=== PATIENT | male | born 1965 | race Caucasian/White ===

== ENCOUNTER 2018-06-14 08:40 | Emergency (ER) | payer OTHER ==
[~2018-06-14] VITALS: Ht 182.9 cm; Wt 95.3 kg
--- NOTE | 2018-06-14 08:55 | PHYS DOC ---
Past Medical History Past Medical History: Diabetes-Type II Adult General Chief Complaint Chief Complaint: MULTIPLE TRAUMA/FALL HPI HPI Patient is a 53 year old male walked into ER for evaluation of facial pain, sternum pain, wrists pain and left femur pain . Patient said he was on a ladder about 16 feet above ground. Patient said the ladder slipped and he rode the ladder down, landed on the ladder, on his chest. Patient complained of left thigh pain, bilateral wrists pain. Patient also complains of sternum pain and facial pain. Patient denied any abdominal pain, no knee pain, no hip pain, no feet pain. Patient denied head injury, no loss of consciousness, no headache, no neck pain. Review of Systems Review of Systems Constitutional: Denies fever or chills [] Eyes: Denies change in visual acuity, redness, or eye pain [] HENT: Denies nasal congestion or sore throat , positive for facial pain. Respiratory: Denies cough or shortness of breath [] Cardiovascular: No additional information not addressed in HPI [] GI: Denies abdominal pain, nausea, vomiting, bloody stools or diarrhea [] : Denies dysuria or hematuria [] Musculoskeletal: bilateral wrists pain, left thigh pain Integument: Denies rash or skin lesions [] Neurologic: Denies headache, focal weakness or sensory changes [] Endocrine: Denies polyuria or polydipsia [] All other systems were reviewed and found to be within normal limits, except as documented in this note. Allergies Allergies Allergies Coded Allergies Type Severity Reaction Last Updated Verified No Known Drug Allergies 06/14/18 No Physical Exam Physical Exam Constitutional: Well developed, well nourished, no acute distress, non-toxic appearance. [] HENT: Normocephalic, atraumatic, bilateral external ears normal, oropharynx moist, no oral exudates, nose normal, facial skin contusion at the area between upper teja and nose. No nasal bridge contusion, no septal hematom. Eyes: PERRLA, EOMI, conjunctiva normal, no discharge. [] Neck: Normal range of motion, no tenderness, supple, no stridor. [] Cardiovascular:Heart rate regular rhythm, no murmur [] Lungs & Thorax: Bilateral breath sounds clear to auscultation, sternum tender to palpation, skin contusion on anterior chest, no crepitus. Abdomen: Bowel sounds normal, soft, no tenderness, no masses, no pulsatile masses. [] Skin: Warm, dry, no erythema, no rash. [] Back: No tenderness, no CVA tenderness. [] Extremities: left thigh tender to palpation, no pelvic or knees tenderness to palpation. Bilateral wrists tender to palpation, there is no swelling, Neurologic: Alert and oriented X 3, normal motor function, normal sensory function, no focal deficits noted. [] Psychologic: Affect normal, judgement normal, mood normal. [] Current Patient Data Vital Signs Vital Signs Date Time Temp Pulse Resp B/P (MAP) Pulse Ox O2 Delivery O2 Flow Rate FiO2 06/14/18 10:45 80 20 172/113 (132) 98 Room Air 06/14/18 08:45 98.4 98.4 EKG EKG [] Radiology/Procedures Radiology/Procedures [[facility] [address] [place] [address] IMAGING REPORT Signed PATIENT: DIONNE ALVARENGA ACCOUNT: [id number] : 1965 LOCATION: ER AGE: 53 SEX: M EXAM STATUS: PRE ER ORD. PHYSICIAN: TIARRA FINCH DO REASON: fell off a ladder, facial injury, head injury PROCEDURE: CT HEAD AND MAXILLOFACIAL WO Examination: CT head and CT face without contrast HISTORY: History of head and neck pain fall from a ladder, facial laceration COMPARISON: None available Exposure: One or more of the following individualized dose reduction techniques were utilized for this examination: 1. Automated exposure control 2. Adjustment of the mA and/or kV according to patient size 3. Use of iterative reconstruction technique CT HEAD TECHNIQUE: 5 mm contiguous axial images were obtained from the skull base to the vertex in both bone and soft tissue algorithm. FINDINGS: Mild bilateral periventricular white matter hypodensities likely chronic small vessel ischemic disease. No evidence of acute intracranial hemorrhage. No extra-axial fluid collections. No mass effect or midline shift. Ventricular size is appropriate. Basal cisterns are patent. No fractures identified.Calderon-white differentiation is preserved.Globes and orbits are within normal limits. Mild mucosal thickening identified in the bilateral ethmoidal sinuses and maxillary sinuses. Small mucous retention cysts or polyps identified in the left maxillary sinus. IMPRESSION: No acute intracranial findings. EXAM: CT FACIAL BONES WITHOUT CONTRAST TECHNIQUE: Noncontrast images of the facial bones are performed. Coronal and sagittal reformatted images are also presented for interpretation. FINDINGS: No fracture, dislocation or other acute bony abnormality is identified. There is no soft tissue abnormality or radiopaque foreign body. The globes and orbits are intact in CT appearance. There is no retrobulbar hematoma. IMPRESSION: No acute fracture of the facial bones. Electronically signed by: Lee Mcneal MD (06/14/2018 9:43 AM) [id number] DICTATED and SIGNED BY: LEE MCNEAL MD DATE: 06/14/18 0937 ] [facility] [address] [place] [address] IMAGING REPORT Signed PATIENT: DIONNE ALVARENGA ACCOUNT: [id number] : 1965 LOCATION: ER AGE: 53 SEX: M EXAM STATUS: PRE ER ORD. PHYSICIAN: TIARRA FINCH DO REASON: fell off ladder, landed on chest with ladder, chest pain, sternum pain PROCEDURE: CT CHEST WO CONTRAST CT CHEST WO CONTRAST Indication: MIDSTERNAL CHEST PAIN POST FALL FROM LADDER Exposure: One or more of the following individualized dose reduction techniques were utilized for this examination: 1. Automated exposure control 2. Adjustment of the mA and/or kV according to patient size 3. Use of iterative reconstruction technique. Comparison: None are available. Contrast: None FINDINGS: Vascular structures: Limited exam without contrast. No evidence of thoracic aortic aneurysm. Lymph nodes:No significant enlargement Thyroid gland:Visualized aspect is unremarkable. Heart: Mild coronary artery calcification. Esophagus: Unremarkable Pleural spaces: No significant effusion Lungs: Dense nodule in the superior segment of the right lower lobe, measures 12 mm in diameter. This demonstrates dense central calcification. Small noncalcified pulmonary nodule at the superior segment of the left lower lobe, abutting the fissure, measures 4 mm, series 3, image 27. Trachea and central airways: Patent Spine: Mild degenerative change. Bones: No evidence of acute sternal fracture. Upper abdomen: Slices obtained through the upper most abdomen are limited by the noncontrast technique. No obvious acute findings. Impression: 1. No acute findings. 2. Note that vascular exam is limited without intravenous contrast. 3. Large densely calcified nodule in the right lower lobe, likely a granuloma. There is a small 4 mm noncalcified pulmonary nodule in the left lower lobe. If patient is low risk, follow-up is not necessarily required as per Fleischner Society guidelines. If high risk, consider CT chest in 12 months. Electronically signed by: Emiliano Del Toro MD (06/14/2018 10:02 AM) [facility] DICTATED and SIGNED BY: EMILIANO DEL TORO MD DATE: 06/14/18 0953 [facility] [address] [place], [place] [id number] IMAGING REPORT Signed PATIENT: DIONNE ALVARENGA ACCOUNT: [id number] : 1965 LOCATION: ER AGE: 53 SEX: M EXAM STATUS: PRE ER ORD. PHYSICIAN: TIARRA FINCH DO REASON: fell off a ladder, facial injury, head injury PROCEDURE: CT CERVICAL SPINE WO CONTRAST CT CERVICAL SPINE INDICATION: HEAD AND NECK PAIN POST FALL FROM LADDER, FACIAL LACERATION TO LIP
NO PRIORS COMPARISON: None Available. Technique: 2.5 mm contiguous axial images were obtained from the skull base through the cervicothoracic junction in both bone and soft tissue algorithm. Additional sagittal and coronal reconstructions were also performed. Exposure: One or more of the following individualized dose reduction techniques were utilized for this examination: 1. Automated exposure control 2. Adjustment of the mA and/or kV according to patient size 3. Use of iterative reconstruction technique FINDINGS: Vertebral body height and alignment are maintained. Cervical lordosis is preserved. The lateral masses of C1 are aligned upon C2. No fractures identified. The bony canal is patent throughout. Mild intervertebral disc height loss identified throughout cervical spine. The paraspinous soft tissues are unremarkable. Visualized intracranial contents are unremarkable. Lung apices are clear. IMPRESSION: 1. No acute fracture of cervical spine. Correlate clinically. 2. Mild degenerative changes cervical spine. Electronically signed by: Lee Mcneal MD (06/14/2018 9:47 AM) [id number] DICTATED and SIGNED BY: LEE MCNEAL MD DATE: 06/14/1844 [facility] [address] [place] [address] IMAGING REPORT Signed PATIENT: DIONNE ALVARENGA ACCOUNT: [id number] : 1965 LOCATION: ER AGE: 53 SEX: M EXAM STATUS: PRE ER ORD. PHYSICIAN: TIARRA FINCH DO REASON: fell, left side femur pain PROCEDURE: LEFT FEMUR XRAY Left femur, 2 views, 06/14/2018: HISTORY: Fall, injuries No femoral fracture is identified. Arterial calcifications are noted. IMPRESSION: No acute left femoral abnormality is detected. Portable pelvis, single view, 06/14/2018: No fracture is identified. The soft tissues are unremarkable. IMPRESSION: No acute pelvic abnormality is detected. Bilateral wrists, 6 views, 06/14/2018: HISTORY: Fall, wrist pain No fracture or dislocation is identified. Arterial calcifications are present. There is mild subcutaneous edema. IMPRESSION: No acute bony abnormality is detected. Electronically signed by: Justin Padilla MD (06/14/2018 9:28 AM) [facility] DICTATED and SIGNED BY: JUSTIN PADILLA MD DATE: 06/14/1825 [id number] [place] [address] IMAGING REPORT Signed PATIENT: DIONNE ALVARENGA ACCOUNT: [id number] : 1965 LOCATION: ER AGE: 53 SEX: M EXAM STATUS: PRE ER ORD. PHYSICIAN: TIARRA FINCH DO REASON: fell off ladder, wrists pain PROCEDURE: WRIST BILAT 3V Left femur, 2 views, 06/14/2018: HISTORY: Fall, injuries No femoral fracture is identified. Arterial calcifications are noted. IMPRESSION: No acute left femoral abnormality is detected. Portable pelvis, single view, 06/14/2018: No fracture is identified. The soft tissues are unremarkable. IMPRESSION: No acute pelvic abnormality is detected. Bilateral wrists, 6 views, 06/14/2018: HISTORY: Fall, wrist pain No fracture or dislocation is identified. Arterial calcifications are present. There is mild subcutaneous edema. IMPRESSION: No acute bony abnormality is detected. Electronically signed by: Justin Padilla MD (06/14/2018 9:28 AM) [facility] DICTATED and SIGNED BY: JUSTIN PADILLA MD DATE: 06/14/18924 Course & Med Decision Making Course & Med Decision Making Pertinent Labs and Imaging studies reviewed. (See chart for details) [] Dragon Disclaimer Dragon Disclaimer This electronic medical record was generated, in whole or in part, using a voice recognition dictation system. Departure Departure Impression: Primary Impression: Contusion of face Additional Impressions: Contusion of wrist, left Contusion of wrist, right Thigh contusion Disposition: 01 HOME, SELF-CARE Condition: STABLE Patient Instructions: Facial or Scalp Contusion, Wyva-pu-Dcvv, Hand Contusion, [id number]-fn-[id number] Scripts Tramadol Hcl (TRAMADOL HCL) 50 Mg Tablet 50 MG PO Q6HRS PRN for PAIN for 5 Days, #20 TAB Prov: TIARRA FINCH DO 06/14/18 Problem Qualifiers TIARRA FINCH DO Jun 14, 2018 08:55
--- NOTE | 2018-06-14 09:32 | RAD ---
Left femur, 2 views, 06/14/2018: HISTORY: Fall, injuries No femoral fracture is identified. Arterial calcifications are noted. IMPRESSION: No acute left femoral abnormality is detected. Portable pelvis, single view, 06/14/2018: No fracture is identified. The soft tissues are unremarkable. IMPRESSION: No acute pelvic abnormality is detected. Bilateral wrists, 6 views, 06/14/2018: HISTORY: Fall, wrist pain No fracture or dislocation is identified. Arterial calcifications are present. There is mild subcutaneous edema. IMPRESSION: No acute bony abnormality is detected. Electronically signed by: Justin Dozier MD (06/14/2018 9:28 AM) [facility]
--- NOTE | 2018-06-14 09:47 | RAD ---
Examination: CT head and CT face without contrast HISTORY: History of head and neck pain fall from a ladder, facial laceration COMPARISON: None available Exposure: One or more of the following individualized dose reduction techniques were utilized for this examination: 1. Automated exposure control 2. Adjustment of the mA and/or kV according to patient size 3. Use of iterative reconstruction technique CT HEAD TECHNIQUE: 5 mm contiguous axial images were obtained from the skull base to the vertex in both bone and soft tissue algorithm. FINDINGS: Mild bilateral periventricular white matter hypodensities likely chronic small vessel ischemic disease. No evidence of acute intracranial hemorrhage. No extra-axial fluid collections. No mass effect or midline shift. Ventricular size is appropriate. Basal cisterns are patent. No fractures identified.Calderon-white differentiation is preserved.Globes and orbits are within normal limits. Mild mucosal thickening identified in the bilateral ethmoidal sinuses and maxillary sinuses. Small mucous retention cysts or polyps identified in the left maxillary sinus. IMPRESSION: No acute intracranial findings. EXAM: CT FACIAL BONES WITHOUT CONTRAST TECHNIQUE: Noncontrast images of the facial bones are performed. Coronal and sagittal reformatted images are also presented for interpretation. FINDINGS: No fracture, dislocation or other acute bony abnormality is identified. There is no soft tissue abnormality or radiopaque foreign body. The globes and orbits are intact in CT appearance. There is no retrobulbar hematoma. IMPRESSION: No acute fracture of the facial bones. Electronically signed by: Lee Mcneal MD (06/14/2018 9:43 AM) [id number]
--- NOTE | 2018-06-14 09:51 | RAD ---
CT CERVICAL SPINE INDICATION: HEAD AND NECK PAIN POST FALL FROM LADDER, FACIAL LACERATION TO LIP
NO PRIORS COMPARISON: None Available. Technique: 2.5 mm contiguous axial images were obtained from the skull base through the cervicothoracic junction in both bone and soft tissue algorithm. Additional sagittal and coronal reconstructions were also performed. Exposure: One or more of the following individualized dose reduction techniques were utilized for this examination: 1. Automated exposure control 2. Adjustment of the mA and/or kV according to patient size 3. Use of iterative reconstruction technique FINDINGS: Vertebral body height and alignment are maintained. Cervical lordosis is preserved. The lateral masses of C1 are aligned upon C2. No fractures identified. The bony canal is patent throughout. Mild intervertebral disc height loss identified throughout cervical spine. The paraspinous soft tissues are unremarkable. Visualized intracranial contents are unremarkable. Lung apices are clear. IMPRESSION: 1. No acute fracture of cervical spine. Correlate clinically. 2. Mild degenerative changes cervical spine. Electronically signed by: Lee Mcneal MD (06/14/2018 9:47 AM) [id number]
--- NOTE | 2018-06-14 10:06 | RAD ---
CT CHEST WO CONTRAST Indication: MIDSTERNAL CHEST PAIN POST FALL FROM LADDER Exposure: One or more of the following individualized dose reduction techniques were utilized for this examination: 1. Automated exposure control 2. Adjustment of the mA and/or kV according to patient size 3. Use of iterative reconstruction technique. Comparison: None are available. Contrast: None FINDINGS: Vascular structures: Limited exam without contrast. No evidence of thoracic aortic aneurysm. Lymph nodes:No significant enlargement Thyroid gland:Visualized aspect is unremarkable. Heart: Mild coronary artery calcification. Esophagus: Unremarkable Pleural spaces: No significant effusion Lungs: Dense nodule in the superior segment of the right lower lobe, measures 12 mm in diameter. This demonstrates dense central calcification. Small noncalcified pulmonary nodule at the superior segment of the left lower lobe, abutting the fissure, measures 4 mm, series 3, image 27. Trachea and central airways: Patent Spine: Mild degenerative change. Bones: No evidence of acute sternal fracture. Upper abdomen: Slices obtained through the upper most abdomen are limited by the noncontrast technique. No obvious acute findings. Impression: 1. No acute findings. 2. Note that vascular exam is limited without intravenous contrast. 3. Large densely calcified nodule in the right lower lobe, likely a granuloma. There is a small 4 mm noncalcified pulmonary nodule in the left lower lobe. If patient is low risk, follow-up is not necessarily required as per Fleischner Society guidelines. If high risk, consider CT chest in 12 months. Electronically signed by: Emiliano Del Toro MD (06/14/2018 10:02 AM) [id number]
[2018-06-14 10:45] VITALS: BP 172/113
[2018-06-14] MEDS ORDERED: TRAM50TA PO (11:06)
== END 2018-06-14 11:10 | disposition home or self-care (01) ==
LOC: ER 08:40
DX: S00.83XA Contusion of other part of head, initial encounter (principal); S60.212A Contusion of left wrist, initial encounter; S60.211A Contusion of right wrist, initial encounter; S70.12XA Contusion of left thigh, initial encounter; R07.2 Precordial pain; R51 Headache; E11.9 Type 2 diabetes mellitus without complications; W11.XXXA Fall on and from ladder, initial encounter; Y93.89 Activity, other specified; Y92.89 Other specified places as the place of occurrence of the external cause; Y99.8 Other external cause status
CPT/HCPCS: 70450; 70486; 71250; 72125; 72170; 73110; 73552; 99285-25